=== PATIENT | female | born 1940 | race Caucasian/White ===

== ENCOUNTER → 2018-10-06 11:22 | Outpatient (CLI) | payer MEDICARE, OTHER, SELFPAY ==
--- NOTE | 2018-10-06 | DI.MG.S_ITS ---
BILATERAL DIGITAL SCREENING MAMMOGRAM 3D/2D WITH CAD: 10/06/2018 CLINICAL: Routine screening. Personal history of bilateral breast cancer. Family history of breast cancer. Comparison is made to exams dated: 10/04/2017 mammogram, 10/02/2016 mammogram, and 09/30/2015 mammogram - [facility]. The tissue of both breasts is heterogeneously dense. This may lower the sensitivity of mammography. Current study was also evaluated with a Computer Aided Detection (CAD) system. There are benign post operative findings in both breasts. There also are benign calcifications in both breasts. No significant masses, calcifications, or other findings are seen in either breast. There has been no significant interval change. IMPRESSION: There is no mammographic evidence of malignancy. A 1 year screening mammogram is recommended. This exam was interpreted at Station ID: [id number]. NOTE: For mammograms, a report in lay terms will be sent to the patient. Approximately 15% of breast malignancies will not be visualized mammographically. In the management of a palpable breast mass, a negative mammogram must not discourage biopsy of a clinically suspicious lesion. Electronically Signed By: Pravin santos/barry:10/06/2018 11:56:16 letter sent: Normal Exam ACR BI-RADS Category 2: Benign Finding(s) 3342F
== END ==
PROVIDERS: PCP Family Medicine; Visit Provider Family Medicine
DX: Z12.31 Encounter for screening mammogram for malignant neoplasm of breast (principal); Z85.3 Personal history of malignant neoplasm of breast; Z80.3 Family history of malignant neoplasm of breast
CPT/HCPCS: 77063; 77067

== ENCOUNTER → 2019-12-16 10:28 | Outpatient (CLI) | payer MEDICARE, OTHER, SELFPAY ==
--- NOTE | 2019-12-16 | DI.MG.S_ITS ---
BILATERAL DIGITAL SCREENING MAMMOGRAM 3D/2D WITH CAD: 12/16/2019 CLINICAL: Routine screening. Family history of breast cancer. History of breast cancer. Comparison is made to exams dated: 10/06/2018 mammogram, 10/04/2017 mammogram, and 10/02/2016 mammogram - [facility]. The tissue of both breasts is heterogeneously dense. This may lower the sensitivity of mammography. Current study was also evaluated with a Computer Aided Detection (CAD) system. There are benign calcifications in both breasts. There also are benign post operative findings in both breasts. No significant masses, calcifications, or other findings are seen in either breast. There has been no significant interval change. IMPRESSION: There is no mammographic evidence of malignancy. A 1 year screening mammogram is recommended. This exam was interpreted at Station ID: [id number]. NOTE: For mammograms, a report in lay terms will be sent to the patient. Approximately 15% of breast malignancies will not be visualized mammographically. In the management of a palpable breast mass, a negative mammogram must not discourage biopsy of a clinically suspicious lesion. Electronically Signed By: Pravin santos/barry:12/16/2019 11:32:50 letter sent: Normal Exam ACR BI-RADS Category 2: Benign Finding(s) 3342F
== END ==
PROVIDERS: PCP Family Medicine; Referring Provider Family Medicine; Visit Provider Family Medicine
DX: Z12.31 Encounter for screening mammogram for malignant neoplasm of breast (principal); Z85.3 Personal history of malignant neoplasm of breast; Z80.3 Family history of malignant neoplasm of breast
CPT/HCPCS: 77063; 77067

== ENCOUNTER → 2019-12-31 11:46 | Outpatient (CLI) | payer MEDICARE, OTHER, SELFPAY ==
--- NOTE | 2019-12-31 | DI.US.S_ITS ---
PROCEDURE: US THYROID INDICATIONS: HYPOTHYROIDISM TECHNIQUE: Real-time scanning was performed of the thyroid gland, with image documentation. COMPARISON: [facility], US, THYROID, 08/07/2011, 8:38. FINDINGS: Right: Thyroid lobe measures 6.0 x 1.5 x 2.1 cm, and is homogeneous in echotexture. Left: Thyroid lobe measures 7.2 x 2.6 x 4.3 cm, and is homogenous in echotexture. Isthmus: 13 mm thick. Nodule number: 1 Location: Right superior pole Size: 1.2 x 0.6 x 0.8 cm. Composition: Solid Echogenicity: Hypoechoic Shape: wider than tall. Margins: Smooth Echogenic foci: None Total points: 4 ACR TI-RADS category: Moderately suspicious Nodule number: 2 Location: Right superior pole Size: 1.4 x 1.0 x 1.1 cm. Composition: Solid Echogenicity: Hyperechoic Shape: wider than tall. Margins: Smooth Echogenic foci: None Total points: 4 ACR TI-RADS category: Moderately suspicious Nodule number: 3 Location: Right interpolar region Size: 3.5 x 1.3 x 2.3 cm. Composition: Solid Echogenicity: Hypoechoic Shape: wider than tall. Margins: Ill-defined Echogenic foci: Macro calcifications Total points: 5 ACR TI-RADS category: Moderately suspicious Nodule number: 4 Location: Upper pole of the left lobe Size: 2.5 x 1.3 x 1.1 cm. Composition: Predominantly cystic Echogenicity: Hypoechoic Shape: Wider than tall Margins: Ill-defined Echogenic foci: None Total points: 2 ACR TI-RADS category: Not suspicious Nodule number: 5 Location: Left inferior/mid pole Size: 7.7 x 4.5 x 4.2 cm. Composition: Solid Echogenicity: Hypoechoic Shape: Wider than tall Margins: Ill-defined Echogenic foci: None Total points: 4 ACR TI-RADS category: Moderately suspicious IMPRESSION: Multiple bilateral thyroid nodules; ultrasound-guided FNA recommended for the #3 and #5 nodules. ACR TI-RADS definitions and recommendations: TI-RADS 1 (benign): 0 points. FNA not needed. TI-RADS 2 (not suspicious): 2 points. FNA not needed. TI-RADS 3 (mildly suspicious): 3 points. * FNA if 2.5 cm or larger, follow up if 1.5 cm or larger (at 1, 3, and 5 years). TI-RADS 4 (moderately suspicious): 4-6 points. * FNA if 1.5 cm or larger, follow up if 1 cm or larger (at 1, 2, 3, and 5 years). TI-RADS 5 (highly suspicious): 7 points or more. * FNA if 1 cm or larger, follow up if 0.5 cm or larger (every year for 5 years). Dictated by: Samir Sandoval M.D. on 12/31/2019 at 15:32 Approved by: Samir Sandoval M.D. on 12/31/2019 at 15:52
== END ==
PROVIDERS: PCP Family Medicine; Referring Provider Family Medicine; Visit Provider Family Medicine
DX: E03.9 Hypothyroidism, unspecified (principal); E04.2 Nontoxic multinodular goiter
CPT/HCPCS: 76536

== ENCOUNTER → 2020-01-20 10:16 | Outpatient (CLI) | payer MEDICARE, OTHER, SELFPAY ==
[2020-01-20 11:50] LABS: Free T3, Triiodothyronine Free 3.54 pg/mL (2.77-5.27); Free T4, Direct Thyroxine 1.12 ng/dL (0.78-2.19)
== END ==
PROVIDERS: PCP Family Medicine; Referring Provider Specialist; Visit Provider Specialist
DX: E04.2 Nontoxic multinodular goiter (principal)
CPT/HCPCS: 36415; 84439; 84443; 84481; 99213

== ENCOUNTER → 2020-01-28 09:02 | Outpatient (CLI) | payer MEDICARE, OTHER, SELFPAY ==
--- NOTE | 2020-01-28 | PATH_ITS ---
Note [facility] Accession Number: [id number] TESTS RESULT FLAG UNITS REF RANGE LAB Clinician Provided Cytology Information No. of containers..01 Other (Miscellaneous) No. of containers..02 Previously Prepared Cytology Slide 01 RIGHT THYROID NODULE #3 DIAGNOSIS: 01 RIGHT THYROID NODULE #3, FINE NEEDLE ASPIRATION. NEGATIVE FOR MALIGNANT CELLS. ADEQUATE FOR EVALUATION. FOLLICULAR GROUPS ARE PRESENT. BENIGN FOLLICULAR (GOITEROUS) NODULE ([place] CATEGORY II), SEE COMMENT. COMMENT: MICROSCOPIC EXAMINATION REVEALS A MILDLY CELLULAR ASPIRATE, COMPOSED OF COLLOID, FOLLICULAR GROUPS WITHOUT SIGNIFICANT CYTOLOGIC OR ARCHITECTURAL ATYPIA, AND BACKGROUND MACROPHAGES. THESE FINDINGS SUPPORT A BENIGN FOLLICULAR (GOITEROUS) NODULE. CORRELATION WITH CLINICAL AND RADIOGRAPHIC FINDINGS IS RECOMMENDED. ACCORDING TO THE [place] REPORTING SYSTEM FOR THYROID CYTOPATHOLOGY, THE RISK OF MALIGNANCY IN THE CATEGORY BENIGN-CATEGORY II IS 0-3%; THEREFORE RECOMMEND CONTINUED ULTRASOUND SURVEILLANCE WITH REPEAT FNA IF THE NODULE SIGNIFICANTLY INCREASES IN SIZE. Pathologist ICD10: 01 E04.1 01 Chrissy Hernandez MD, Pathologist NPI- [id number] 01 Robert Aponte, [employer] ([facility]) 01 30 CC, PINK, CLEAR RECIEVED: IN CYTOLYT WITH 6 ALCOHOL FIXED AND 6 QUICK STAINED SLIDES ALSO 1 RNA VIAL WAS RECEIVED FOR FURTHER TESTING. /[facility] 01/29/2020 0634 Local FLAG LEGEND: L-Low Normal,H-High Normal,LL-Alert Low,HH-Alert High <-Panic Low,>-Panic High,A-Abnormal,AA-Critical Abnormal Performed at: 01 =Z [facility] [address], [place] [address] Aaron Barrett MD, Performed at: 01 [facility] [address], [place], [place] [id number] MD Aaron Barrett MD Phone: [phone]
--- NOTE | 2020-01-28 09:04 | DI.US.S_ITS ---
PROCEDURE: US FINE NEEDLE ASPIRATION INDICATIONS: bilateral thyroid nodules for FNA (see report done here) TECHNIQUE: The indications, alternatives, benefits, risks, and complications of the procedure were explained to the patient. Written informed consent was obtained and placed in the chart. The thyroid region was examined sonographically and a site was chosen for ultrasound guided percutaneous sampling. The skin was prepared and draped in the usual fashion, and anesthetized with 1% lidocaine infiltrated from the skin down to the thyroid gland. Multiple passes were then performed, with contents emptied into an appropriate pathology specimen container. A bandage was applied to the area of access at completion of the study. COMPARISON: [facility], US, US THYROID, 12/31/2019, 12:12. FINDINGS: Location(s) of lesion(s) sampled: With respect to the prior study report dated 12/31/19, nodule 3 at the right/isthmus location, and nodule 5 at the mid-inferior left lobe. [place]: 25 and 22 gauge hypodermic needles. Number of passes: 7 passes through each nodule Medications: 1% lidocaine for local anaesthesia. Complications: None. IMPRESSION: Successful ultrasound-guided thyroid nodule fine needle aspiration, with cytology results pending. Please see chart below for management recommendations based on cytology results. [place] [facility] ReportingRecommendationsNon-diagnostic* Repeat US-guided FNA, with on-site cytology evaluation if possible. * Repeated non-diagnostic nodules without high suspicion US features: close observation vs surgical consult. * Consider surgery if nodule has high suspicion US features, grows >20% in 2 dimensions on followup, or patient has clinical risk factors for malignancy. Benign* If nodule has high suspicion US features: repeat US and FNA within 12 months. * If nodule has low to intermediate suspicion US features: repeat US at 12-24 months. If nodule grows (20% increase in at least 2 dimensions, with minimal increase of 2 mm or >50% change in volume), or development of new suspicious US features, then repeat FNA or continue followup. * If nodule has very low suspicion US features: followup US at >24 months. Atypia of undetermined significance, follicular lesion of undetermined significanceRepeat FNA, molecular testing, followup US, or surgical consult.Follicular neoplasm, suspicious for follicular neoplasmSurgical consult; also consider molecular testing. Suspicious for malignancySurgical consult.MalignantSurgical consult. Dictated by: Samir Sandoval M.D. on 01/28/2020 at 11:20 Approved by: Samir Sandoval M.D. on 01/28/2020 at 11:22
== END ==
PROVIDERS: PCP Family Medicine; Referring Provider Specialist; Visit Provider Specialist
DX: E04.2 Nontoxic multinodular goiter (principal)
CPT/HCPCS: 10005; 10006

== ENCOUNTER 2020-03-24 06:03 | Emergency (ER) | payer MEDICARE, OTHER, SELFPAY ==
--- NOTE | 2020-03-24 06:10 | ED_ITS ---
HPI - General Adult General Chief complaint: Wound/Laceration Stated complaint: Cut left arm, Doesn't know when she cut it Time Seen by Provider: 03/24/20 06:05 Source: patient Mode of arrival: Ambulatory Limitations: no limitations History of Present Illness HPI narrative: Patient is a 70-year-old female here for evaluation of a cut/skin tear to her left arm. She does not know when or how this happened but it ap pears to of happened overnight. States she went to bed last night without any issues and woke up this morning with a skin tear. She does not remember falling. She does not remember hitting it on anything. She reports no other injuries from the event. Does admit to drinking half a bottle of alcohol on a nightly basis. Related Data Home Medications Medication Instructions Recorded Confirmed CHOLECALCIFEROL (VITAMIN D) 2,000 iu PO QDAY #0 08/26/12 01/20/20 VITAMIN B COMPLEX (Vitamin B 1 tab PO Q DAY #0 08/26/12 01/20/20 Complex) [CALCIUM] 1,200 mg PO Q DAY #0 08/26/12 01/20/20 Allergies Allergy/AdvReac Type Severity Reaction Status Date / Time No Known Drug Allergies Allergy Unverified 03/24/20 06:14 Review of Systems Constitutional Constitutional: Denies headache(s) ENT Ears, Nose, Mouth, and Throat: Denies vertigo, Denies dizziness and Denies h eadache(s) Cardiovascular Cardiovascular: Denies chest pain and Denies dyspnea Respiratory Respiratory: Denies dyspnea Gastrointestinal Gastrointestinal: Denies abdominal pain Musculoskeletal Musculoskeletal: Denies arthralgias and Denies myalgias Integumentary/Breasts Comments: Skin tear to left forearm Neurologic Neurologic: Denies vertigo, Denies dizziness and Denies headache(s) Hematologic/Lymphatic Hematologic/Lymphatic: Denies easy bleeding and Denies easy bruising Allergic/Immunologic Allergic/Immunologic: Denies urticaria Patient History Medical History HTN (hypertension) (Acute) Hx of breast cancer (Acute) Surgical History Hx of hysterectomy (Acute) Social History Smoking Status: Never smoker Exam Initial Vital Signs Initial Vital Signs: Vital Signs Temperature 97.0 F L 03/24/20 06:11 Pulse Rate 93 H 03/24/20 06:11 Respiratory Rate 16 03/24/20 06:11 Blood Pressure 170/81 H 03/24/20 06:11 Pulse Oximetry 98 03/24/20 06:11 Const General: cooperative and comfortable Limitations: mental status not altered HENMT Head: normal to inspection and normocephalic Resp Effort & Inspection: normal respiratory effort Cardio Rate: regular rate Back/Spine/Pelvis Cervical Spine: No cervical spinal tenderness Skin Other: Patient with a 10 cm irregular skin tear to the dorsum of the left forearm. No active bleeding. Neuro General: patient alert, patient awake and patient oriented x3 Extrem General: normal to inspection and capillary refill normal Psych Appearance: grossly normal and well kempt Scores GCS Armin coma scale eye opening: Spontaneous [place] coma scale verbal response: Orientated Armin coma scale motor response: Obey commands Armin coma scale total score: 15 Nexus Score for C-Spine Focal Neurologic deficit present: No Midline spinal tenderness present: No Altered level of conciousness present: No Intoxication present: No Distracting Injury Present: No Nexus Criteria for C-spine: 0 Course Orders Ordered: Discontinued Medications Bacitracin (Bacitracin) 3 applic TOP NOW ONE Stop: 03/24/20 06:14 Last Admin: 03/24/20 06:24 Dose: 3 applic Documented by: IVELISSE Vital Signs Vital signs: Vital Signs - 8 hr 03/24/20 06:11 Temperature 97.0 F L Pulse Rate 93 H Respiratory Rate 16 Blood Pressure 170/81 H Pulse Oximetry 98 Medical Decision Making [facility] Narrative Medical decision making narrative: Patient is alert and oriented x3. Has a GCS of 15. Does not remember how the event happened but it does appear to of happened overnight. The wound is a skin tear. There is no laceration and no indication for stitches. The edges of the skin were approximated with Steri- Strips it was then covered with bacitracin ointment and then covered with a nonadherent bandage. She ambulated without problems. She has no neck pain. Cervical spine is cleared by nexus criteria. She reports no other injuries from the event. We will hold on radiologic studies for now. Patient and were given care instructions and return precautions. They expressed understanding and agreement. Discharge Plan Departure Patient Disposition: Home Clinical Impression: Skin tear of left upper extremity Discharge Date/Time: 03/24/20 06:27 Instructions: DI for Abrasion Activity Restrictions/Additional Instructions: You can remove the bandages this evening and shower like normal. However leave the little thin strip bandages that are holding the skin together in place until they fall off on their own. That should be in approximately 7-10 days. Keep the area covered with an antibiotic ointment. Return to the emergency department for any new or worsening symptoms Prescriptions: No Action CHOLECALCIFEROL (VITAMIN D) 2,000 iu PO QDAY Qty: 0 RF: 0 VITAMIN B COMPLEX (Vitamin B Complex) 1 tab PO Q DAY Qty: 0 RF: 0 [CALCIUM] 1,200 mg PO Q DAY Qty: 0 RF: 0 Referrals: Alexander Heath MD [Primary Care Provider] -
[2020-03-24 06:11] VITALS: BP 170/81; PULSE 93; RESP 16; TEMP 36.1; O2SAT 98; BMI 24.3
[2020-03-24] MEDS: BACITRACIN OINT 0.9 GM PCKT 3 APPLIC TOP (06:24)
--- NOTE | 2020-03-24 06:25 | PC.NURSE ---
Skin tear approximated by provider with steri strips, antibiotic ointment applied with coban and pilar wrap. Educated patient on management of wound and dressing.
== END 2020-03-24 06:27 | disposition home or self-care (01) ==
PROVIDERS: Emergency Provider Emergency Medicine; PCP Family Medicine
DX: S41.112A Laceration without foreign body of left upper arm, initial encounter (principal)
CPT/HCPCS: 99282

== ENCOUNTER → 2020-08-10 11:28 | Outpatient (CLI) | payer MEDICARE, OTHER, SELFPAY ==
--- NOTE | 2020-08-10 11:30 | DI.US.S_ITS ---
PROCEDURE: US THYROID INDICATIONS: f/u on thyroid nodules to confirm stability (FNA c/w goiter) TECHNIQUE: Real-time scanning was performed of the thyroid gland, with image documentation. COMPARISON: [facility], US, US FINE NEEDLE ASPIRATION, 01/28/2020, 9:33. [facility], US, US THYROID, 12/31/2019, 12:12. FINDINGS: Right: Thyroid lobe measures 6.0 x 1.9 x 2.4 cm, and is homogeneous in echotexture. Left: Thyroid lobe measures 7.1 x 3.0 x 3.1 cm, and is homogenous in echotexture. Isthmus: 5.0 mm thick. Nodule number: 1 Location: Right superior Size: Stable 1.3 x 0.7 x 0.8 cm. Composition: Solid Echogenicity: Hypoechoic Shape: wider than tall. Margins: Smooth Echogenic foci: None Total points: 4 ACR TI-RADS category: Moderately suspicious Nodule number: 2 Location: Right superior Size: Stable 1.5 x 1.1 x 1.4 cm. Composition: Complex Echogenicity: Heterogeneous Shape: wider than tall. Margins: Smooth Echogenic foci: None Total points: 3 ACR TI-RADS category: Mildly suspicious Nodule number: 3 Location: Right mid Size: Decreased at 2.3 x 0.9 x 1.6 cm. Composition: Mixed cystic and solid Echogenicity: Heterogeneous Shape: wider than tall. Margins: Smooth Echogenic foci: Punctate calcifications Total points: 5 ACR TI-RADS category: Moderately suspicious Nodule number: 4 Location: Left superior Size: Decreased at 1.0 x 0.8 x 0.8 cm. Composition: Predominantly solid Echogenicity: Hypoechoic Shape: wider than tall. Margins: Smooth Echogenic foci: None Total points: 4 ACR TI-RADS category: Moderately suspicious Nodule number: 5 Location: Left mid Size: Decreased at 6.0 x 3.3 x 6.5 cm. Composition: Solid Echogenicity: Hypoechoic Shape: wider than tall. Margins: Smooth Echogenic foci: None Total points: 4 ACR TI-RADS category: Moderately suspicious IMPRESSION: Bilateral thyroid nodules as above. Recommend continued followup ultrasound as detailed below. Of note, nodules number 3 and 5 have already underwent fine-needle aspiration. ACR TI-RADS definitions and recommendations: TI-RADS 1 (benign): 0 points. FNA not needed. TI-RADS 2 (not suspicious): 2 points. FNA not needed. TI-RADS 3 (mildly suspicious): 3 points. * FNA if 2.5 cm or larger, follow up if 1.5 cm or larger (at 1, 3, and 5 years). TI-RADS 4 (moderately suspicious): 4-6 points. * FNA if 1.5 cm or larger, follow up if 1 cm or larger (at 1, 2, 3, and 5 years). TI-RADS 5 (highly suspicious): 7 points or more. * FNA if 1 cm or larger, follow up if 0.5 cm or larger (every year for 5 years). Dictated by: aDniel Larkin [facility] Interpreted: Pravin Ortiz MD on 08/10/2020 at 13:08 Approved by: Pravin Ortiz M.D. on 08/10/2020 at 15:19
== END ==
PROVIDERS: PCP Family Medicine; Referring Provider Specialist; Visit Provider Specialist
DX: E04.2 Nontoxic multinodular goiter (principal)
CPT/HCPCS: 76536

== ENCOUNTER → 2020-11-01 10:51 | Outpatient (CLI) | payer MEDICARE, OTHER, SELFPAY ==
--- NOTE | 2020-11-01 | DI.US.S_ITS ---
PROCEDURE: US CAROTID DOPPLER BI INDICATIONS: Age-related cognitive decline TECHNIQUE: Color and pulse Doppler interrogation was performed of both carotid systems, with image documentation and velocity measurements. COMPARISON: [facility], CT, CT HEAD/BRAIN WO CON, 11/01/2020, 11:00. FINDINGS: Stenosis calculations are based on SRU (Society of Radiologists in Ultrasound) criteria. The flow velocities and the arterial waveforms are normal within both carotid arterial systems. Atherosclerotic plaque is seen on both sides. The estimated degree of internal carotid artery stenosis is less than 50%. Antegrade flow is confirmed within both vertebral arteries. IMPRESSION: No hemodynamically significant stenosis is seen. Atherosclerotic plaque is noted bilaterally. Dictated by: Keyon Rubio M.D. on 11/01/2020 at 12:20 Approved by: Keyon Rubio M.D. on 11/01/2020 at 12:21
--- NOTE | 2020-11-01 11:38 | DI.CT.S_ITS ---
PROCEDURE: CT HEAD/BRAIN WO CON INDICATIONS: age related cognitive decline TECHNIQUE: Noncontrast 4.5 mm thick angled axial sections acquired from the foramen magnum to the vertex, with coronal and sagittal reformats. For radiation dose reduction, the following was used: automated exposure control, adjustment of mA and/or kV according to patient size. COMPARISON: None. FINDINGS: Image quality: Diagnostic, with note made of motion artifact. CSF spaces: Basal cisterns are patent. No extra-axial fluid collections. The ventricles are symmetric in size and shape. Brain: No intracranial bleeds or masses. There is cerebral volume loss for age, with resultant ventricular and sulcal prominence. There are periventricular and deep white matter chronic small vessel ischemic changes. There is intracranial internal carotid artery atherosclerosis. Skull and face: Calvarium and visualized facial bones appear intact, without suspicious lesions. Sinuses: Visualized sinuses and mastoids are clear. IMPRESSION: Study within normal limits for age, with note made of brain parenchymal volume loss and chronic small vessel ischemic change. Dictated by: Keyon Rubio M.D. on 11/01/2020 at 10:58 Approved by: Keyon Rubio M.D. on 11/01/2020 at 10:59
== END ==
PROVIDERS: PCP Family Medicine; Referring Provider Family Medicine; Visit Provider Family Medicine
DX: I65.23 Occlusion and stenosis of bilateral carotid arteries (principal); R41.81 Age-related cognitive decline
CPT/HCPCS: 70450; 93880

== ENCOUNTER 2022-02-17 21:33 | Emergency (ER) | payer MEDICARE, OTHER, SELFPAY ==
--- NOTE | 2022-02-17 21:59 | ED_ITS ---
HPI - General Adult General Chief complaint: Trauma Stated complaint: Fall- R hip Time Seen by Provider: 02/17/22 21:55 Source: EMS Mode of arrival: EMS Limitations: other (Dementia) History of Present Illness HPI narrative: Patient is a 81-year-old female. Arrives by EMS. Is a resident of a living facility in their dementia unit. Per EMS they were called by the facility because of a unwitnessed fall by the patient. Is reported that the patient is a ?wander ?around the facility. Unsure exactly how she fell. There is no reports of any anticoagulation. She does have a cut to her left cheek. Is reports of any loss of consciousness. Some concern about right hip discomfort/deformity. Patient is unable to provide any HPI or review of systems given her dementia history. Related Data Home Medications Medication Instructions Recorded Confirmed CHOLECALCIFEROL (VITAMIN D) 2,000 iu PO QDAY ##0 08/26/12 03/29/20 VITAMIN B COMPLEX (Vitamin B 1 tab PO Q DAY ##0 08/26/12 03/29/20 Complex) [CALCIUM] 1,200 mg PO Q DAY ##0 08/26/12 04/27/20 Allergies Allergy/AdvReac Type Severity Reaction Status Date / Time No Known Drug Allergies Allergy Verified 04/27/20 14:28 Review of Systems Review of Systems ROS Unobtainable: Unobtainable due to mental condition Patient History Medical History Dementia Dependent edema HTN (hypertension) Hx of breast cancer Right thyroid nodule Surgical History Hx of hysterectomy Social History Smoking Status: Former smoker Smoking Status: Former smoker alcohol intake frequency: 3 or more drinks per day Alcohol type: hard liquor Substance Use Type: does not use Exam Initial Vital Signs Initial Vital Signs: Vital Signs Pulse Rate 86 02/17/22 22:18 Blood Pressure 137/96 H 02/17/22 22:18 Const General: cooperative and comfortable HENMT Head: normal to inspection and normocephalic Chest Chest: No crepitus Resp Effort & Inspection: normal respiratory effort Auscultation: clear to auscultation bilaterally Cardio Rate: regular rate Rhythm: regular rhythm GI Inspection: normal to inspection Palpation: soft and No guarding Skin Other: Patient with a small superficial skin tear to her left cheek. Neuro Other: Patient does move all 4 extremities. Patient is nonverbal. Extrem Other: Shakes her head yes that she is having right hip discomfort however flexion and extension and internal and external rotation does not seem to cause any discomfort. Right knee ankle left lower extremity and bilateral upper extremities are unremarkable. Course Orders Ordered: ED Orders 02/17/22 22:12 CT cervical spine wo con Stat CT facial bones wo con Stat CT head/brain wo con Stat XR hip w pel if done RT 2V Stat 02/17/22 23:04 Basic Metabolic Panel Stat Complete Blood Count AUTO DIFF Stat 02/18/22 00:26 COVID19 -Nasal RAPID/Pre-Proc Stat 02/18/22 02:15 CT head/brain wo con Stat Vital Signs Vital signs: Vital Signs - 8 hr 02/17/22 22:18 02/17/22 22:33 02/17/22 23:00 Temperature Pulse Rate 86 84 82 Respiratory Rate 20 22 Blood Pressure 137/96 H Pulse Oximetry 98 97 02/17/22 23:30 02/18/22 00:00 02/18/22 00:24 Temperature 98.3 F Pulse Rate 87 84 Respiratory Rate 24 24 Blood Pressure 132/59 L Pulse Oximetry 98 97 02/18/22 00:24 02/18/22 00:30 02/18/22 00:30 Temperature Pulse Rate 84 85 Respiratory Rate 21 20 Blood Pressure 129/60 Pulse Oximetry 97 97 02/18/22 01:00 02/18/22 01:00 02/18/22 01:30 Temperature Pulse Rate 83 Respiratory Rate 18 Blood Pressure 113/67 110/56 L Pulse Oximetry 95 02/18/22 01:30 02/18/22 02:00 02/18/22 02:39 Temperature Pulse Rate 82 158 H Respiratory Rate 16 24 Blood Pressure 135/64 Pulse Oximetry 95 97 02/18/22 02:39 02/18/22 03:00 02/18/22 03:00 Temperature Pulse Rate 82 81 Respiratory Rate Blood Pressure 125/58 L Pulse Oximetry 90 L 96 02/18/22 03:30 02/18/22 03:30 02/18/22 04:00 Temperature Pulse Rate 80 Respiratory Rate Blood Pressure 119/59 L 117/56 L Pulse Oximetry 95 02/18/22 04:00 02/18/22 04:30 02/18/22 04:30 Temperature Pulse Rate 80 78 Respiratory Rate Blood Pressure 119/60 Pulse Oximetry 94 94 02/18/22 05:00 02/18/22 05:00 Temperature Pulse Rate 78 Respiratory Rate Blood Pressure 105/51 L Pulse Oximetry 94 Medical Decision Making Lab Data Lab results reviewed: Yes I reviewed the patient's lab results. Result diagrams: 02/17/22 23:04 02/17/22 23:04 Labs: Lab Results 02/17/22 02/17/22 02/17/22 Range/Units 23:04 23:04 23:47 WBC 9.8 (4.5-11.0) X10^3/uL RBC 4.17 (4.0-5.2) X10^6/uL Hgb 12.3 (12.0-16.0) g/dL Hct 36.4 (36-46) % MCV 87.4 (80-100) fL MCH 29.4 (26-34) PG MCHC 33.7 (30-36) % RDW 14.1 (11.6-14.8) % Plt Count 185 (150-400) X10^3/uL Neut % (Auto) 64.6 (50-75) % Lymph % (Auto) 29.9 (25-40) % [place] % (Auto) 4.0 (3-14) % Eos % (Auto) 0.8 L (2-4) % Baso % (Auto) 0.7 (0-2) % Neut # (Auto) 6300 (2239-6206) /uL Lymph # (Auto) 2900 (6544-8728) /uL [place] # (Auto) 400 (0-900) /uL Eos # (Auto) 100 (0-450) /uL Baso # (Auto) 100 (0-100) /uL Sodium 139 (137-145) mmol/L Potassium 4.1 (3.4-5.1) mmol/L Chloride 102 (98-107) mmol/L Carbon Dioxide 28 (22-32) mmol/L BUN 14 (7-17) mg/dL Creatinine 0.86 (0.52-1.04) mg/dL Estimated GFR > 60 (>60) mL/min BUN/Creatinine Ratio 16.3 (6-22) Glucose 157 H (80-110) mg/dL Calcium 8.8 (8.4-10.2) mg/dL SARS-CoV-2 (PCR) Negative (Negative) Imaging Data CT - cervical spine: Radiologist's Impression: [address] [address] [address] Scan Report Signed Patient: Merry Walker MR#: [id number] : 1940 Acct:[id number] Age/Sex: 81 / F Date of Service: 02/17/22 Loc: ED Accession Number: [id number] ?? Procedure: CT cervical spine wo con Ordering Provider: Segun Powers D.O. PROCEDURE:? CT CERVICAL SPINE WO CON ? INDICATIONS:? Trauma ? TECHNIQUE:? Noncontrast 3 mm thick sections acquired from the skull base to the T4 level.? Sagittal and coronal reformats were then constructed.? For radiation dose reduction, the following was used:? automated exposure control, adjustment of mA and/or kV according to patient size.? ? COMPARISON:? US, US THYROID, 08/10/2020, 12:13. ? FINDINGS:? Image quality:? Excellent.? ? Bones:? No fractures or dislocations.? Loss of intervertebral disc space height.? Mild multilevel spondylolisthesis.? Visualized superior ribs are intact.? Mild sclerosis at left C3 (outside the field of view on the prior exam); and anterior C7, similar to 2012.? ? ? Soft tissues:? Prevertebral soft tissues are normal in thickness.? Thyroid goiter with mass effect on the trachea.? Aneurysmal dilatation of the thoracic aorta.? This measures approximately 3.5 cm just distal to the aortic isthmus, (10/07).? No paravertebral hematomas.? No apical pneumothoraces.? Suspect pleural apical scarring.? ? ? IMPRESSION:? No acute fracture demonstrated.? Moderate degenerative change in the cervical spine. ? Small sclerotic foci x2.? 1 of which appears stable since 2012. The other is outside the field of view on the prior exam. ? Large thyroid goiter is enlarged compared to CT from 2012. Mass effect on the trachea. Aneurysmal dilatation of the thoracic aorta. ? ? ? Dictated by: Poncho Bauer M.D. on 02/17/2022 at 23:27 ? ? Approved by: Poncho Bauer M.D. on 02/17/2022 at 23:34?? ct face: Radiologist's Impression: [address] [address] [address] Scan Report Signed Patient: Merry Walker MR#: [id number] : 1940 Acct:[id number] Age/Sex: 81 / F Date of Service: 02/17/22 Loc: ED Accession Number: [id number] ?? Procedure: CT facial bones wo con Ordering Provider: Segun Powers D.O. PROCEDURE:? CT FACIAL BONES WO CON ? INDICATIONS:? Trauma. ? TECHNIQUE:? Noncontrast 2.5 mm thick axial images acquired from the mandible through the frontal sinuses, with coronal and sagittal reformatting.? For radiation dose reduction, the following was used:? automated exposure control, adjustment of mA and/or kV according to patient size.? ? COMPARISON:? None. ? FINDINGS:? Image quality:? Excellent.? ? Bones and teeth:? Orbital chin are intact.? Sinus chin show no fracture or deformity.? Nasal bones and septum are intact.? Visualized portions of the mandible demonstrate no fractures or subluxation.? Zygomatic arches are intact.? Pterygoid plates are intact.? Visualized portions of the skull base and auditory canals are intact.? ? Sinuses:? Paranasal sinuses are aerated, without fluid levels, mucosal thickening, or mucoceles.? Mastoid air cells are aerated.? ? Soft tissues:? Small amount of subcutaneous gas at the left cheek/zygomatic arch.? This is presumably due to laceration.? No edema, masses, or fluid collections.? No enlarged lymph nodes.? No soft tissue lacerations or debris.? ? Vascular:? Visualized vascular structures appear normal in the absence of contrast.? Bony vascular foramina and canals are intact.? ? IMPRESSION:? No fracture. ? Skin laceration at the left zygomatic arch/cheek. ? ? Dictated by: Poncho Bauer M.D. on 02/18/2022 at 0:02 ? ? Approved by: Poncho Bauer M.D. on 02/18/2022 at 0:04?? CT scan - head: Radiologist's Impression: [address] [address] [address] Scan Report Signed Patient: Merry Walker MR#: [id number] : 1940 Acct:[id number] Age/Sex: 81 / F Date of Service: 02/17/22 Loc: ED Accession Number: [id number] ?? Procedure: CT head/brain wo con Ordering Provider: Segun Powers D.O. PROCEDURE:? CT HEAD/BRAIN WO CON ? INDICATIONS:? Trauma ? TECHNIQUE:? Noncontrast 4.5 mm thick angled axial sections acquired from the foramen magnum to the vertex, with coronal and sagittal reformats.? For radiation dose reduction, the following was used:? automated exposure control, adjustment of mA and/or kV according to patient size.? ? COMPARISON:? [facility], CT, CT HEAD/BRAIN WO CON, 11/01/2020, 11:00. ? FINDINGS:? Image quality:? Excellent.? ? CSF spaces:? Basal cisterns are patent.? No extra-axial fluid collections.? Ventricles are unchanged in size and shape.? Small amount of hyperdense blood products layering in the left ventricle posterior horn, (2/16), new.? ? Brain:? No midline shift.? No intracranial masses or hemorrhage.? No area of hypodensity in a large vascular distribution to suggest acute infarction. Periventricular hypodensity consistent with chronic microvascular ischemic change. Age-related parenchymal loss. ? Skull and face:? Calvarium and visualized facial bones are intact, without suspicious lesions.? Skin laceration near the left zygomatic arch. ? Sinuses:? Visualized sinuses and mastoids are clear.? ? IMPRESSION:? 1. Hyperdense blood products layering in the posterior horn of the left lateral ventricle. ? 2. Skin laceration near the left zygomatic arch.? ? 3. Chronic microvascular ischemic disease. ? Comment: Findings were discussed with Segun Powers at the time of dictation. ? Dictated by: Poncho Bauer M.D. on 02/17/2022 at 23:07 ? ? Approved by: Poncho Bauer M.D. on 02/17/2022 at 23:14? Extremity x-ray #1: Radiologist's Impression: [address] [address] XRay Report Signed Patient: Merry Walker MR#: [id number] : 1940 Acct:[id number] Age/Sex: 81 / F Date of Service: 02/17/22 Loc: ED Accession Number: [id number] ?? Procedure: XR hip w pel if done RT 2V Ordering Provider: Segun Powers D.O. PROCEDURE:? XR HIP W PEL IF DONE RT 2V ? INDICATIONS:? Trauma. ? TECHNIQUE:? AP pelvis with lateral view(s) of the right hip(s).? ? COMPARISON:? None. ? FINDINGS:? ? Bones:? No fractures or dislocations.? Pelvic ring appears intact.? Small sclerotic focus at the left iliac wing.? ? Soft tissues:? The visualized bowel gas pattern is normal.? No suspicious soft tissue calcifications.? ? ? IMPRESSION:? No fracture identified. ? Small sclerotic focus at the left iliac wing.? Additional sclerotic foci were seen in the cervical spine.? Clinical significance is uncertain. ? ? ? Dictated by: Poncho Bauer M.D. on 02/17/2022 at 23:59 ? ? Approved by: Poncho Bauer M.D. on 02/18/2022 at 0:01?? Repeat head CT: Radiologist's Impression: Stable small amount of blood within the dependent portion of the left lateral ventricle. No new intracranial abnormalities are present MDM Narrative Medical decision making narrative: Patient is at baseline mental status per EMS crew that brought her to the emergency department. No fractures noted on her hip x-ray. Patient was able to stand and walk without apparent discomfort. She is moving all [address] shows blood within the left lateral ventricle. I did discuss the case with neurosurgery at [facility] who reviewed the head CT who recommended repeat head CT in 4 hours and if unchanged patient can be discharged. Repeat head CT was obtained. No change in the volume of blood and no new indication of any bleeding. Patient does have skin tear to her left cheek which needs no intervention other than Steri-Strips. Will discharge back to living facility. Discharge Plan Departure Patient Disposition: Home Clinical Impression: Traumatic intraventricular hemorrhage, Skin tear, Fall Instructions: How to Prevent Falls Activity Restrictions/Additional Instructions: Merry can continue to take all of her medications as directed. On her initial head CT there was a small amount of bleeding noted within the left lateral ventricle of her brain. A repeat head CT several hours later shows no change. This was discussed with Neurosurgery. No specific intervention needed. Patient's primary doctor should be informed of these findings and should re- evaluate the patient. She can return to the emergency department at any point for new or worsening symptoms. Prescriptions: No Action CHOLECALCIFEROL (VITAMIN D) 2,000 iu PO QDAY Qty: 0 VITAMIN B COMPLEX (Vitamin B Complex) 1 tab PO Q DAY Qty: 0 [CALCIUM] 1,200 mg PO Q DAY Qty: 0 Referrals: Alexander Heath MD [Primary Care Provider] -
--- NOTE | 2022-02-17 22:12 | DI.RAD.S_ITS ---
PROCEDURE: XR HIP W PEL IF DONE RT 2V INDICATIONS: Trauma. TECHNIQUE: AP pelvis with lateral view(s) of the right hip(s). COMPARISON: None. FINDINGS: Bones: No fractures or dislocations. Pelvic ring appears intact. Small sclerotic focus at the left iliac wing. Soft tissues: The visualized bowel gas pattern is normal. No suspicious soft tissue calcifications. IMPRESSION: No fracture identified. Small sclerotic focus at the left iliac wing. Additional sclerotic foci were seen in the cervical spine. Clinical significance is uncertain. Dictated by: Poncho Bauer M.D. on 02/17/2022 at 23:59 Approved by: Poncho Bauer M.D. on 02/18/2022 at 0:01
--- NOTE | 2022-02-17 22:12 | DI.CT.S_ITS ---
PROCEDURE: CT HEAD/BRAIN WO CON INDICATIONS: Trauma TECHNIQUE: Noncontrast 4.5 mm thick angled axial sections acquired from the foramen magnum to the vertex, with coronal and sagittal reformats. For radiation dose reduction, the following was used: automated exposure control, adjustment of mA and/or kV according to patient size. COMPARISON: , CT, CT HEAD/BRAIN WO CON, 11/01/2020, 11:00. FINDINGS: Image quality: Excellent. CSF spaces: Basal cisterns are patent. No extra-axial fluid collections. Ventricles are unchanged in size and shape. Small amount of hyperdense blood products layering in the left ventricle posterior horn, (2/16), new. Brain: No midline shift. No intracranial masses or hemorrhage. No area of hypodensity in a large vascular distribution to suggest acute infarction. Periventricular hypodensity consistent with chronic microvascular ischemic change. Age-related parenchymal loss. Skull and face: Calvarium and visualized facial bones are intact, without suspicious lesions. Skin laceration near the left zygomatic arch. Sinuses: Visualized sinuses and mastoids are clear. IMPRESSION: 1. Hyperdense blood products layering in the posterior horn of the left lateral ventricle. 2. Skin laceration near the left zygomatic arch. 3. Chronic microvascular ischemic disease. Comment: Findings were discussed with Segun Powers at the time of dictation. Dictated by: Poncho Bauer M.D. on 02/17/2022 at 23:07 Approved by: Poncho Bauer M.D. on 02/17/2022 at 23:14
--- NOTE | 2022-02-17 22:12 | DI.CT.S_ITS ---
PROCEDURE: CT CERVICAL SPINE WO CON INDICATIONS: Trauma TECHNIQUE: Noncontrast 3 mm thick sections acquired from the skull base to the T4 level. Sagittal and coronal reformats were then constructed. For radiation dose reduction, the following was used: automated exposure control, adjustment of mA and/or kV according to patient size. COMPARISON: US, US THYROID, 08/10/2020, 12:13. FINDINGS: Image quality: Excellent. Bones: No fractures or dislocations. Loss of intervertebral disc space height. Mild multilevel spondylolisthesis. Visualized superior ribs are intact. Mild sclerosis at left C3 (outside the field of view on the prior exam); and anterior C7, similar to 2012. Soft tissues: Prevertebral soft tissues are normal in thickness. Thyroid goiter with mass effect on the trachea. Aneurysmal dilatation of the thoracic aorta. This measures approximately 3.5 cm just distal to the aortic isthmus, (10/07). No paravertebral hematomas. No apical pneumothoraces. Suspect pleural apical scarring. IMPRESSION: No acute fracture demonstrated. Moderate degenerative change in the cervical spine. Small sclerotic foci x2. 1 of which appears stable since 2012. The other is outside the field of view on the prior exam. Large thyroid goiter is enlarged compared to CT from 2012. Mass effect on the trachea. Aneurysmal dilatation of the thoracic aorta. Dictated by: Poncho Bauer M.D. on 02/17/2022 at 23:27 Approved by: Poncho Bauer M.D. on 02/17/2022 at 23:34
--- NOTE | 2022-02-17 22:12 | DI.CT.S_ITS ---
PROCEDURE: CT FACIAL BONES WO CON INDICATIONS: Trauma. TECHNIQUE: Noncontrast 2.5 mm thick axial images acquired from the mandible through the frontal sinuses, with coronal and sagittal reformatting. For radiation dose reduction, the following was used: automated exposure control, adjustment of mA and/or kV according to patient size. COMPARISON: None. FINDINGS: Image quality: Excellent. Bones and teeth: Orbital chin are intact. Sinus chin show no fracture or deformity. Nasal bones and septum are intact. Visualized portions of the mandible demonstrate no fractures or subluxation. Zygomatic arches are intact. Pterygoid plates are intact. Visualized portions of the skull base and auditory canals are intact. Sinuses: Paranasal sinuses are aerated, without fluid levels, mucosal thickening, or mucoceles. Mastoid air cells are aerated. Soft tissues: Small amount of subcutaneous gas at the left cheek/zygomatic arch. This is presumably due to laceration. No edema, masses, or fluid collections. No enlarged lymph nodes. No soft tissue lacerations or debris. Vascular: Visualized vascular structures appear normal in the absence of contrast. Bony vascular foramina and canals are intact. IMPRESSION: No fracture. Skin laceration at the left zygomatic arch/cheek. Dictated by: Poncho Bauer M.D. on 02/18/2022 at 0:02 Approved by: Poncho Bauer M.D. on 02/18/2022 at 0:04
[2022-02-17 22:18] VITALS: BP 137/96; PULSE 86
[2022-02-17 22:33] VITALS: PULSE 84; RESP 20; O2SAT 98
[2022-02-17 23:00] VITALS: PULSE 82; RESP 22; O2SAT 97
[2022-02-17 23:13] LABS: Add Manual Diff / Slide Review NO; Basophils Absolute Auto 100 /uL (0-100); Basophils Percent Auto 0.7 % (0-2); Eosinophils Absolute Auto 100 /uL (0-450); Eosinophils Percent Auto 0.8 % (2-4); Hematocrit 36.4 % (36-46); Hemoglobin 12.3 g/dL (12.0-16.0); Lymphocytes Absolute Auto 2900 /uL (1100-4500); Lymphocytes Percent Auto 29.9 % (25-40); Mean Corpuscular HGB Conc 33.7 % (30-36); Mean Corpuscular Hemoglobin 29.4 PG (26-34); Mean Corpuscular Volume 87.4 fL (80-100); Monocytes Absolute Auto 400 /uL (0-900); Neutrophils Absolute Auto 6300 /uL (1500-7000); Neutrophils Percent Auto 64.6 % (50-75); Platelet Count 185 X10^3/uL (150-400); Red Blood Cell Count 4.17 X10^6/uL (4.0-5.2); Red Cell Distribution Width 14.1 % (11.6-14.8); White Blood Cell Count 9.8 X10^3/uL (4.5-11.0)
[2022-02-17 23:23] LABS: BUN Creatinine Ratio 16.3 (6-22); Blood Urea Nitrogen 14 mg/dL (7-17); Calcium 8.8 mg/dL (8.4-10.2); Carbon Dioxide 28 mmol/L (22-32); Chloride 102 mmol/L (98-107); Estimated Glomerular Filt Rate > 60 mL/min (>60); Glucose 157 mg/dL (80-110); HEMOLYSIS 19 (0-50); Potassium 4.1 mmol/L (3.4-5.1); Sodium 139 mmol/L (137-145)
[2022-02-17 23:30] VITALS: PULSE 87; RESP 24; O2SAT 98
[2022-02-18] VITALS (23 sets, daily range): BP systolic 105–135; BP diastolic 51–67; PULSE 72–158; RESP 16–24; TEMP 36.8; O2SAT 90–98
[2022-02-18 00:46] LABS: COVID19 -Nasal RAPID Negative (Negative)
--- NOTE | 2022-02-18 02:15 | DI.CT.S_ITS ---
PROCEDURE: CT HEAD/BRAIN WO CON INDICATIONS: Follow-up intracranial hemorrhage TECHNIQUE: Noncontrast 4.5 mm thick angled axial sections acquired from the foramen magnum to the vertex, with coronal and sagittal reformats. For radiation dose reduction, the following was used: automated exposure control, adjustment of mA and/or kV according to patient size. COMPARISON: [facility], CT, CT HEAD/BRAIN WO CON, 02/17/2022, 22:43. [facility], CT, CT HEAD/BRAIN WO CON, 11/01/2020, 11:00. FINDINGS: Image quality: Excellent. CSF spaces: Basal cisterns are patent. No extra-axial fluid collections. The ventricles are symmetric in size and shape. Trace hyperdense blood products are again seen lying within the left lateral ventricle posteriorly Brain: No new intraparenchymal hemorrhage is seen. There is prominent cerebral volume loss for age, with resultant ventricular and sulcal prominence. There are periventricular and deep white matter chronic small vessel ischemic changes. There is intracranial internal carotid artery atherosclerosis. Skull and face: Calvarium and visualized facial bones appear intact, without suspicious lesions. Small amount of soft tissue gas and edema are again seen in the left periorbital soft tissues. Sinuses: Visualized sinuses and mastoids are clear. IMPRESSION: Trace hyperdense blood products within the dependent portion of the left lateral ventricle is stable to mildly decreased. Stable ventricular size. No new intracranial abnormality. There is no significant discrepancy when compared to the overnight preliminary report. Dictated by: Duane Ontiveros M.D. on 02/18/2022 at 7:11 Approved by: Duane Ontiveros M.D. on 02/18/2022 at 7:17
--- NOTE | 2022-02-18 10:54 | PC.NURSE ---
Spoke with Analia Corrales, director at [facility]. I explained that I called and left message for the nurse [phone]. no call back. I reviewed the instructions and we are going to fax the doctor's noted and all imaging reports to Ernestina Rahman at fax number [phone].
== END 2022-02-18 09:55 | disposition home or self-care (01) ==
PROVIDERS: Emergency Provider Emergency Medicine; PCP Family Medicine
DX: S06.309A Unspecified focal traumatic brain injury with loss of consciousness of unspecified duration, initial encounter (principal); M25.551 Pain in right hip; S09.93XA Unspecified injury of face, initial encounter; W19.XXXA Unspecified fall, initial encounter; Z20.822 Contact with and (suspected) exposure to COVID-19
CPT/HCPCS: 36415; 70450; 70486; 72125; 73502; 80048; 85025; 87635; 99284; C9803